=== PATIENT | female | born 1950 | race Caucasian/White ===

== ENCOUNTER 2016-10-08 11:07 | Observation (INO) | payer BC ==
[~2016-10-08] VITALS: Ht 157.5 cm; Wt 58.7 kg
[~2016-10-08 11:07] MED LIST: ACET-1487 PO; Allergy Shots INJ; CHOL100027 PO; COEN100C15 PO; Cranberry PO; EFFSR375 PO; ENAL10TA88 PO; ESTR0.034 TD; MULT-513 PO; Probiotic PO; RANI300T PO
[2016-10-08] MEDS ORDERED: RABE20TA5 PO (11:37)
[2016-10-08] MEDS ORDERED: HYDR25SU20 PR (11:37)
[2016-10-08] MEDS ORDERED: LSN20 PO (11:37)
[2016-10-08] MEDS ORDERED: LORA-741 PO (11:37)
[2016-10-08] MEDS ORDERED: PREMARIN (11:37)
[2016-10-08] MEDS ORDERED: VENL75CA PO (11:37)
[2016-10-08] MEDS ORDERED: CONJ1TAB (11:37)
[2016-10-08] MEDS ORDERED: HYOS1TAB PO (11:38)
[2016-10-08 12:54] LABS: BASO % 0.6 %; BASO ABS # 0.04 K/uL (0-0.2); COMPLETE YES; HEMATOCRIT 40.6 % (37-47); IG% 0.2 %; LYMPH % 30.5 %; LYMPH ABS # 1.97 K/uL (1.2-3.4); MEAN CELL VOLUME 92.5 fL (80-100); MEAN CORPUSCULAR HEMOGLOBIN 32.6 pg (25-34); MEAN CORPUSCULAR HGB CONC 35.2 g/dl (32-36); MEAN PLATELET VOLUME 10.7 fL (7.4-10.4); MONO % 5.9 %; NEUT % 62.8 %; PLATELET COUNT 320 K/uL (130-400); RED BLOOD COUNT 4.39 M/uL (4.2-5.4); WHITE BLOOD COUNT 6.45 K/uL (4.8-10.8)
[2016-10-08] MEDS ORDERED: OPTIRAY 320 IV PRN (13:00)
[2016-10-08 13:01] LABS: BUN/CREATININE RATIO 19.3 (10-20); CALCIUM 9.1 mg/dl (8.5-10.1); CREATININE 0.8 mg/dl (0.60-1.20); INR 0.9 (0.9-1.1); POTASSIUM 3.9 mmol/L (3.5-5.1); PROTHROMBIN TIME (PATIENT) 10.1 SECONDS (9.0-12.0)
[2016-10-08 13:08] LABS: ISTAT CREATININE 0.7 mg/dl (0.6-1.3); ISTAT HEMOGLOBIN 13.3 g/dl (12.0-16.0); ISTAT IONIZED CALCIUM 1.16 mmol/l (1.12-1.32)
--- NOTE | 2016-10-08 13:51 | DIAGNOSTIC IMAGING REPORT ---
CT ANGIOGRAPHY THE CHEST WITHOUT AND WITH CONTRAST CLINICAL HISTORY: Chest pain shortness of breath. Suspected aortic dissection. COMPARISON STUDY: No previous studies for comparison. FINDINGS: Unenhanced images were obtained through the chest. The patient was then scanned in a dynamic helical fashion during intravenous administration 92 cc of Optiray 320. MIP imaging was performed. Unenhanced images reveal no evidence of acute aortic hematoma. There are mild coronary artery calcifications present. Postcontrast images reveal no evidence of thoracic aortic aneurysm or dissection. There are no pulmonary artery filling defects to indicate acute pulmonary embolism. There is no pneumothorax. There is no focal pulmonary consolidation. There are no pleural effusions. There are no pathologically enlarged axillary, mediastinal, or hilar lymph nodes. IMPRESSION: 1. No CT evidence of aortic aneurysm or dissection. 2. No CT evidence of acute pulmonary embolism 3. No evidence of focal pulmonary consolidation. No evidence of pathologic adenopathy. Electronically signed by: Scott Isaacs M.D. 10/08/2016 1:25 PM Dictated Date/Time: 10/08/2016 1:22 PM
--- NOTE | 2016-10-08 15:15 | Medical Student: [facility] ---
Med Student History & Physical Date & Time of Service: Oct 08, 2016 at 14:59 Chief Complaint: Chest Pain Primary Care Physician: Jose Gibson M.D. History of Present Illness Source: patient 66y/o female was cleaning her car this morning when she developed stabbing chest pain in the middle of her chest around 11am. She states that the pain radiated directly to her back and lasted about 10 minutes before it subsided. The patient states that she may have also had some jaw pain, but denies neck pain, shoulder pain, or arm pain. The patient was then pain free for a short period before she had another 15 minute episode of the stabbing pain with radiation to the back. During both of these episodes, the patient states that she felt generalized weakness. Since the second episode of pain, the patient denies any further pain or symptoms. She states that she is at her baseline. She denies sweating, nausea, fever, chills, SOB, leg swelling, diarrhea, constipation, blood in stool, MESA, dizziness, lightheadedness. The patient had a cardiac ablation for a fast heart beat 12 years ago. She developed a blood clot in her leg following the procedure and was put on blood thinners for six months. She never developed a PE and has not had any recent issues with palpitations. The patient also has a history of acid reflux, but states that her pain today felt very different than the burning pain she usually gets with acid reflux. The patient was treated for a sinus infection with two rounds of antibiotics recently. Her last treatment was three days ago and states that she has not had any congestion, sinus pain, or cough over the past three days. Past Medical/Surgical History 1. HTN 2. Acid reflux 3. Anxiety 4. Allergies 5. IBS Surgical History 1. Cardiac ablation 2. hysterectomy Family History Father: coronary artery disease Sibling(s): coronary artery disease, pertinent history of (sister Aortic aneurysm) Social History Smoking Status: Never Smoker Alcohol Use: occasionally Marital Status: Housing status: lives with family Allergies Coded Allergies: Penicillins (Unverified Allergy, Unknown, anaphylaxis, 10/08/16) Medications Conjugated Estrogens-Medroxypr (Premphase) Hydrocortisone Acetate (Rectal (Anusol-Hc), 25 MG [place] BID Hyoscyamine Sulfate (Levsin), 0.125 MG PO UD Lisinopril (Lisinopril), 20 MG PO DAILY Lorazepam (Ativan), 0.5 MG PO UD Rabeprazole Sodium (Aciphex), 20 MG PO DAILY Venlafaxine Hcl (Effexor Xr), 1 CAP PO DAILY [premarin patch] Review of Systems Constitutional: No chills, No fever, No sweats Eyes: No discharge, No redness, No worsening of vision ENT: No hearing loss, No nasal symptoms, No sore throat, No trouble swallowing Respiratory: No cough, No dyspnea at rest, No dyspnea on exertion, No shortness of breath, No sputum, No wheezing Cardiovascular: No edema, No palpitations Abdomen: No constipation, No diarrhea, No nausea, No pain, No vomiting Musculoskeletal: No joint pain, No muscle pain, No swelling Neurologic: No memory loss, No numbness/tingling, No paralysis, No vertigo Psychiatric: No depression symptoms, No substance abuse Hematologic / Lymphatic: No abnormal bleeding/bruising, No swollen lymph nodes Integumentary: No itch, No new/changing skin lesions, No rash Physical Exam Vital Signs (24 Hours) Date Time Temp Pulse Resp B/P Pulse Ox O2 Delivery O2 Flow Rate FiO2 10/08/16 13:51 68 18 140/75 100 Room Air 10/08/16 11:30 98 Room Air 10/08/16 11:29 73 10/08/16 11:21 98 Room Air 10/08/16 11:15 36.5 74 20 137/83 95 Room Air General Appearance: WD/WN, no apparent distress Head: normocephalic, atraumatic Eyes: normal inspection, EOMI ENT: normal ENT inspection, hearing grossly normal, pharynx normal Neck: supple, no adenopathy, no carotid bruits, trachea midline Respiratory/Chest: chest non-tender, no respiratory distress, no accessory muscle use, + crackles (right base) Cardiovascular: regular rate, rhythm, no edema, no gallop, no murmur, normal peripheral pulses Abdomen/GI: normal bowel sounds, non tender, soft Back: normal inspection Extremities/Musculoskelatal: normal inspection, no calf tenderness, no pedal edema Neurologic/Psych: alert, normal mood/affect, oriented x 3 Skin: normal color, warm/dry, no rash Lymphatic: no adenopathy Diagnostics Laboratory Results Results Past 24 Hours Test 10/08/16 11:30 2/21/17 12:58 10/08/16 13:08 Range/Units White Blood Count 6.45 4.8-10.8 K/uL Red Blood Count 4.39 4.2-5.4 M/uL Hemoglobin 14.3 12.0-16.0 g/dL Hematocrit 40.6 37-47 % Mean Corpuscular Volume 92.5 80-100 fL Mean Corpuscular Hemoglobin 32.6 25-34 pg Mean Corpuscular Hemoglobin Concent 35.2 32-36 g/dl Platelet Count 320 130-400 K/uL Mean Platelet Volume 10.7 7.4-10.4 fL Neutrophils (%) (Auto) 62.8 % Lymphocytes (%) (Auto) 30.5 % Monocytes (%) (Auto) 5.9 % Eosinophils (%) (Auto) 0.0 % Basophils (%) (Auto) 0.6 % Neutrophils # (Auto) 4.05 1.4-6.5 K/uL Lymphocytes # (Auto) 1.97 1.2-3.4 K/uL Monocytes # (Auto) 0.38 0.11-0.59 K/uL Eosinophils # (Auto) 0.00 0-0.5 K/uL Basophils # (Auto) 0.04 0-0.2 K/uL RDW Standard Deviation 43.0 36.4-46.3 fL RDW Coefficient of Variation 12.7 11.5-14.5 % Immature Granulocyte % (Auto) 0.2 % Immature Granulocyte # (Auto) 0.01 0.00-0.02 K/uL Prothrombin Time 10.1 9.0-12.0 SECONDS Prothromb Time International Ratio 0.9 0.9-1.1 Activated Partial Thromboplast Time 25.4 21.0-31.0 SECONDS Partial Thromboplastin Ratio 1.0 Sodium Level 139 136-145 mmol/L Potassium Level 3.9 3.5-5.1 mmol/L Chloride Level 103 98-107 mmol/L Carbon Dioxide Level 30 21-32 mmol/L Anion Gap 6.0 14.0 16-25 mmol/L Blood Urea Nitrogen 15 7-18 mg/dl Creatinine 0.80 0.60-1.20 mg/dl Est Creatinine Clear Calc Drug Dose 55.5 ml/min Estimated GFR () 89.7 Estimated GFR (Non- 77.4 BUN/Creatinine Ratio 19.3 10-20 Random Glucose 73 70-99 mg/dl Calcium Level 9.1 8.5-10.1 mg/dl Bedside Hemoglobin 13.3 12.0-16.0 g/dl Bedside Hematocrit 39 37-47 % Bedside Sodium 139 135-144 mEq/L Bedside Potassium 4.7 3.3-5.0 mEq/L Bedside Chloride 99 101-112 mEq/L Bedside Total CO2 31 24-31 mEq/l Bedside Blood Urea Nitrogen 21 7-18 mg/dl Bedside Creatinine 0.7 0.6-1.3 mg/dl Bedside Glucose (other) 80 70-99 mg/dl Bedside Ionized Calcium (Suhas) 1.16 1.12-1.32 mmol/l Bedside D-Dimer 356 0-450 ng/mlFEU Bedside Troponin I 0.000 0-0.045 ng/ml Diagnostic Radiology CT ANGIOGRAPHY THE CHEST WITHOUT AND WITH CONTRAST IMPRESSION: 1. No CT evidence of aortic aneurysm or dissection. 2. No CT evidence of acute pulmonary embolism 3. No evidence of focal pulmonary consolidation. No evidence of pathologic adenopathy. Normal EKG Impression Assessment and Plan 66y/o female with two episodes of stabbing chest pain, now currently at baseline with no pain. CTA of the chest was negative for dissection, aneurysm, and PE. Initial cardiac enzymes were negative and ecg was normal. The patient has no previous history of CAD or HI, but has risk factors of HTN and family history. The patient's HEART score was calculated to be 4 (age +2, risk factors +1, and moderately suspicious +1) and will admit the patient for chest pain rule out. Chest pain rule out- Follow serial cardiac enzymes. Echo ordered. Repeat ecg. Administer ASA 81mg PO daily and NTG 0.4 SL as needed for chest pain. HTN- Continue to administer Lisinopril 20mg PO daily. Anxiety- Administer Venlafaxine 75mg PO daily and Lorazepam 0.5mg PO as needed for anxiety. Acid reflux- Administer Rabeprazole 20mg PO daily. IBS- Administer Hyoscyamine 0.125mg PO daily. Level of Care Med/Surg
--- NOTE | 2016-10-08 16:09 | History and Physical ---
History & Physical Date & Time of Service: Oct 08, 2016 at 15:49 Chief Complaint: Chest Pain,Sob Primary Care Physician: Jose Gibson M.D. History of Present Illness Source: patient, family 66F with a PMHx of HTN, GERD, IBS, cardiac ablation 12 years ago w post op blood clot presents with an acute onset sharp midline chest pain that started when she was wiping her car during a car wash. Patient went inside, the pain subsided after 10 minutes, then returned while she was at rest. Patient states that her jaw also felt tight at this time. Her cardiac history is significant for cardiac ablation for tachycardia approx 12 years ago with no complications, it was done at [facility] [place]. She has had no cardiac complaints since then. Pt also reports that the pain radiated to her back and felt like it was stabbing through her back. Her sister from an aortic aneurysm in her 70s. ROS: She denies sweating, nausea, fever, chills, SOB, leg swelling, diarrhea, constipation, blood in stool, MESA, dizziness, lightheadedness. PMHx: GERD on PPI - had an upper endoscopy 1 month ago that found esophageal polyps, otherwise laquita. Finished a course of doxy on Friday for a URI, cardiac ablation 12 years ago, done here (front window cashier said they will merge the MRNs). No pancreatic problems, chronically elevated LFTs of unknown origin per PCP (Dr. Gibson). PSHx: Hysterectomy >20 years ago. Allergies: Penicillins. SHx: Non smoker, lives w Past Medical/Surgical History Medical Problems: (1) Acid reflux Status: Chronic (2) H/O blood clots Status: Resolved (3) HTN (hypertension) Status: Chronic Surgical Problems: (1) H/O prior ablation treatment Status: Resolved Family History Aortic aneurysm Heart disease Social History Smoking Status: Never Smoker Alcohol Use: occasionally (once a week) Marital Status: Housing status: lives with family Allergies Coded Allergies: Penicillins (Unverified Allergy, Unknown, anaphylaxis, 10/08/16) Home Medications Scheduled Hydrocortisone Acetate (Rectal (Anusol-Hc), 25 MG [place] BID Hyoscyamine Sulfate (Levsin), 0.125 MG PO UD Lisinopril (Lisinopril), 20 MG PO DAILY Lorazepam (Ativan), 0.5 MG PO UD Rabeprazole Sodium (Aciphex), 20 MG PO DAILY Venlafaxine Hcl (Effexor Xr), 1 CAP PO DAILY Miscellaneous Medications Conjugated Estrogens-Medroxypr (Premphase) [premarin patch] Review of Systems Constitutional: No chills, No fever Cardiovascular: + chest pain Abdomen: No constipation, No diarrhea, No nausea, No pain, No vomiting Neurologic: No memory loss Physical Exam Vital Signs Date Time Temp Pulse Resp B/P Pulse Ox O2 Delivery O2 Flow Rate FiO2 10/08/16 15:44 68 10/08/16 13:51 68 18 140/75 100 Room Air 10/08/16 11:30 98 Room Air 10/08/16 11:29 73 10/08/16 11:21 98 Room Air 10/08/16 11:15 36.5 74 20 137/83 95 Room Air General Appearance: WD/WN, no apparent distress Respiratory/Chest: chest non-tender, lungs clear, normal breath sounds, no respiratory distress, no accessory muscle use Cardiovascular: regular rate, rhythm, no edema, no gallop, no JVD, no murmur, normal peripheral pulses Abdomen/GI: normal bowel sounds, non tender, soft, no organomegaly, no pulsatile mass Extremities/Musculoskelatal: normal inspection, no calf tenderness, no pedal edema Neurologic/Psych: alert, normal mood/affect, normal reflexes, oriented x 3 Diagnostics Laboratory Results Results Past 24 Hours Test 10/08/16 11:30 10/08/16 12:58 10/08/16 13:08 Range/Units White Blood Count 6.45 4.8-10.8 K/uL Red Blood Count 4.39 4.2-5.4 M/uL Hemoglobin 14.3 12.0-16.0 g/dL Hematocrit 40.6 37-47 % Mean Corpuscular Volume 92.5 80-100 fL Mean Corpuscular Hemoglobin 32.6 25-34 pg Mean Corpuscular Hemoglobin Concent 35.2 32-36 g/dl Platelet Count 320 130-400 K/uL Mean Platelet Volume 10.7 7.4-10.4 fL Neutrophils (%) (Auto) 62.8 % Lymphocytes (%) (Auto) 30.5 % Monocytes (%) (Auto) 5.9 % Eosinophils (%) (Auto) 0.0 % Basophils (%) (Auto) 0.6 % Neutrophils # (Auto) 4.05 1.4-6.5 K/uL Lymphocytes # (Auto) 1.97 1.2-3.4 K/uL Monocytes # (Auto) 0.38 0.11-0.59 K/uL Eosinophils # (Auto) 0.00 0-0.5 K/uL Basophils # (Auto) 0.04 0-0.2 K/uL RDW Standard Deviation 43.0 36.4-46.3 fL RDW Coefficient of Variation 12.7 11.5-14.5 % Immature Granulocyte % (Auto) 0.2 % Immature Granulocyte # (Auto) 0.01 0.00-0.02 K/uL Prothrombin Time 10.1 9.0-12.0 SECONDS Prothromb Time International Ratio 0.9 0.9-1.1 Activated Partial Thromboplast Time 25.4 21.0-31.0 SECONDS Partial Thromboplastin Ratio 1.0 Sodium Level 139 136-145 mmol/L Potassium Level 3.9 3.5-5.1 mmol/L Chloride Level 103 98-107 mmol/L Carbon Dioxide Level 30 21-32 mmol/L Anion Gap 6.0 14.0 16-25 mmol/L Blood Urea Nitrogen 15 7-18 mg/dl Creatinine 0.80 0.60-1.20 mg/dl Est Creatinine Clear Calc Drug Dose 55.5 ml/min Estimated GFR () 89.7 Estimated GFR (Non- 77.4 BUN/Creatinine Ratio 19.3 10-20 Random Glucose 73 70-99 mg/dl Calcium Level 9.1 8.5-10.1 mg/dl Bedside Hemoglobin 13.3 12.0-16.0 g/dl Bedside Hematocrit 39 37-47 % Bedside Sodium 139 135-144 mEq/L Bedside Potassium 4.7 3.3-5.0 mEq/L Bedside Chloride 99 101-112 mEq/L Bedside Total CO2 31 24-31 mEq/l Bedside Blood Urea Nitrogen 21 7-18 mg/dl Bedside Creatinine 0.7 0.6-1.3 mg/dl Bedside Glucose (other) 80 70-99 mg/dl Bedside Ionized Calcium (Suhas) 1.16 1.12-1.32 mmol/l Bedside D-Dimer 356 0-450 ng/mlFEU Bedside Troponin I 0.000 0-0.045 ng/ml Diagnostic Radiology CT ANGIOGRAPHY THE CHEST WITHOUT AND WITH CONTRAST CLINICAL HISTORY: Chest pain shortness of breath. Suspected aortic dissection. COMPARISON STUDY: No previous studies for comparison. FINDINGS: Unenhanced images were obtained through the chest. The patient was then scanned in a dynamic helical fashion during intravenous administration 92 cc of Optiray 320. MIP imaging was performed. Unenhanced images reveal no evidence of acute aortic hematoma. There are mild coronary artery calcifications present. Postcontrast images reveal no evidence of thoracic aortic aneurysm or dissection. There are no pulmonary artery filling defects to indicate acute pulmonary embolism. There is no pneumothorax. There is no focal pulmonary consolidation. There are no pleural effusions. There are no pathologically enlarged axillary, mediastinal, or hilar lymph nodes. IMPRESSION: 1. No CT evidence of aortic aneurysm or dissection. 2. No CT evidence of acute pulmonary embolism 3. No evidence of focal pulmonary consolidation. No evidence of pathologic adenopathy. EKG Normal sinus rhythm Normal ECG No previous ECGs available Normal EKG Impression Assessment and Plan 66F w a PMHx of GERD, Cardiac ablation and HTN presents with acute onset sharp chest pain that radiated to her back. Fam Hx significant for older sister who from aortic aneurysm in her 70s. Patient completed a course of Doxycycline on Friday. CTA showed no evidence of aortic or thoracic aneurysm. Pt admitted to tele for observation. Will order repeat troponins and stress echo. Chest Pain Radiating to back, Ischemic vs Costochondritis vs Post Viral - Pt has not acute complaints of chest pain at this time. - EKG grossly normal. Trops neg. CTA negative for dissection. - F/u exercise echo, repeat troponins, f/u lipase, amylase, LFTs GERD - c/w Pantoprazole 40mg daily. HTN - c/w Lisinopril 20mg daily. Mood c/w Venlaxafine 75mg daily. IBS c/w Hyoscyamine 0.125mg DVT Proph: Lovenox 30units SQ. Dispo: Heart healthy diet, Observation, Tele, Full Code. Resident Physician Supervision Note: I interviewed and examined the patient. Discussed with Dr. Hinojosa and agree with findings and plan as documented in the note. Any exceptions or clarifications are listed here: None Documented By: Mariusz Lawrence chest pain - sharp and stabbing - substernal - ~10mins then gone then again for ~15mins then gone - intense radiated to back. feels fine now. breathing not affected by pain vitals noted, nad breathing unlabored no pallor or icterus, exam otherwise as above EKG no acute ischemic changes, CT no dissection, labs noted chest pain - more than likely transient esophageal spasm - but given concerns must r/o ACS - serial enzymes, then if negative, stress echo otherwise as above Resident Involvement: Resident Care Provided Care Provided: Adult [facility] Medicine
[2016-10-08] MEDS ORDERED: POLYETHYLENE (MIRALAX) 17 GM PACK PO PRN (16:15)
[2016-10-08] MEDS ORDERED: ONDANSETRON INJ 2 MG/ML 2 ML VIAL IV PRN (16:15)
[2016-10-08] MEDS ORDERED: MAGNESIUM HYDROXIDE SUSP 30 ML UDC PO PRN (16:15)
[2016-10-08] MEDS ORDERED: MoRPHine SULFATE 2 MG/ML CARP IV PRN (16:15)
[2016-10-08] MEDS ORDERED: ALUMINUM/MAGNESIUM/SIMETH (MAALOX MAX) 30 ML UDC PO PRN (16:15)
[2016-10-08] MEDS ORDERED: ACETAMINOPHEN 325 MG TAB PO PRN (16:15)
[2016-10-08] MEDS ORDERED: IV FLUIDS COMPLETED PRN (16:30)
[2016-10-08 17:16] LABS: BUN/CREATININE RATIO 18.6 (10-20); CALCIUM 8.8 mg/dl (8.5-10.1); CREATININE 0.74 mg/dl (0.60-1.20); POTASSIUM 4.4 mmol/L (3.5-5.1)
[2016-10-08 17:41] VITALS: BP 143/85; PULSE 69; TEMP 36.5; O2SAT 100
[2016-10-08 18:00] VITALS: BP 143/85; PULSE 69; TEMP 36.5; O2SAT 98; Ht 157.5 cm; Wt 58.7 kg
--- NOTE | 2016-10-08 19:12 | EMERGENCY ROOM VISIT NOTE ---
History Report prepared by Kimberly: Keesha Vasquez Under the Supervision of: Dr. Hamilton Villeda M.D. First contact with patient: 12:33 Chief Complaint: CHEST PAIN Stated Complaint: CHEST PAIN,SOB Nursing Triage Summary: Patient states went to dentist this AM and took 0.5 mg Ativan beforehand. Patient has hx of anxiety. Patient states was out in the yard and had stabbing, substernal chest pain that radiated to back. Patient states pain lasted 15-20 minutes. Patient states pain went away on its own, without intervention. Patient denies SOB, diaphoresis, N/V. History of Present Illness The patient is a 66 year old female who presents to the Emergency Room with complaints of an episode of central chest pain around 11AM today. She describes it as an "awful pain" that lasted about 15 minutes. Her states that she was doubled over in pain. She also felt the pain in her back. Her jaw was slightly tight at that time. She had a cough last week which has resolved. Denies lightheadedness, sweating, shortness of breath, nausea, leg swelling, leg pain or other complaints. Past medical history includes acid reflux and diabetes. Her current symptoms do not feel similar to acid reflux. She states that she has never had similar pain. She has not noticed any chest pain prior to today for the past several days. 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 She was put on blood thinners after the surgery due to a blood clot in her lungs. Her current symptoms do not feel similar to her previous blood clot. The patient has never been a smoker. There is a family history of heart disease - her father was diagnosed with CAD in his 60s. Her sister was a heavy smoker and was diagnosed with CAD in her 60s. Her sister also had a carotid artery blockage and aortic aneurysm. Source of History: patient Onset: 11AM today Position: chest (central) Timing: resolved Associated Symptoms: No SOB, No nausea Note: Denies lightheadedness, sweating, leg swelling, leg pain Review of Systems See HPI for pertinent positives & negatives. A total of 10 systems reviewed and were otherwise negative. Past Medical & Surgical Medical Problems: (1) Acid reflux (2) Chest pain (3) H/O blood clots (4) HTN (hypertension) Surgical Problems: (1) H/O prior ablation treatment Family History Aortic aneurysm Heart disease Social History Smoking Status: Never Smoker Marital Status: Housing Status: lives with significant other Current/Historical Medications Scheduled Hydrocortisone Acetate (Rectal (Anusol-Hc), 25 MG DE BID Hyoscyamine Sulfate (Levsin), 0.125 MG PO UD Lisinopril (Lisinopril), 20 MG PO DAILY Lorazepam (Ativan), 0.5 MG PO UD Rabeprazole Sodium (Aciphex), 20 MG PO DAILY Venlafaxine Hcl (Effexor Xr), 1 CAP PO DAILY Miscellaneous Medications Conjugated Estrogens-Medroxypr (Premphase) [premarin patch] Allergies Coded Allergies: Penicillins (Unverified Allergy, Unknown, anaphylaxis, 10/08/16) Physical Exam Vital Signs Date Time Temp Pulse Resp B/P Pulse Ox O2 Delivery O2 Flow Rate FiO2 10/08/16 15:50 65 10 154/73 100 Room Air 10/08/16 15:44 68 10/08/16 13:51 68 18 140/75 100 Room Air 10/08/16 11:30 98 Room Air 10/08/16 11:29 73 10/08/16 11:21 98 Room Air 10/08/16 11:15 36.5 74 20 137/83 95 Room Air Physical Exam Constitutional: Vital signs reviewed. Eyes: Pupils are equal round reactive to light. Conjunctiva are noninjected. ENT: Pharynx is clear without erythema or exudate. Mucous membranes are moist. Neck supple without meningeal signs. Respiratory: Clear to auscultation bilaterally. Breath sounds are equal bilaterally. Cardiovascular: Regular rate and rhythm. No rubs or gallops. Left arm blood pressure: 113/73. Right arm blood pressure: 131/79. GI: Soft, nondistended and nontender. Bowel sounds are present. Musculoskeletal: No peripheral edema. No lower extremity tenderness. Integumentary: No cyanosis. Neurological: The patient is awake and alert. No focal deficits. Psychiatric: Normal affect. Medical Decision & Procedures ER Provider Diagnostic Interpretation: Radiology results as stated below per my review and the radiologist's interpretation: CT ANGIOGRAPHY THE CHEST WITHOUT AND WITH CONTRAST CLINICAL HISTORY: Chest pain shortness of breath. Suspected aortic dissection. COMPARISON STUDY: No previous studies for comparison. FINDINGS: Unenhanced images were obtained through the chest. The patient was then scanned in a dynamic helical fashion during intravenous administration 92 cc of Optiray 320. MIP imaging was performed. Unenhanced images reveal no evidence of acute aortic hematoma. There are mild coronary artery calcifications present. Postcontrast images reveal no evidence of thoracic aortic aneurysm or dissection. There are no pulmonary artery filling defects to indicate acute pulmonary embolism. There is no pneumothorax. There is no focal pulmonary consolidation. There are no pleural effusions. There are no pathologically enlarged axillary, mediastinal, or hilar lymph nodes. IMPRESSION: 1. No CT evidence of aortic aneurysm or dissection. 2. No CT evidence of acute pulmonary embolism 3. No evidence of focal pulmonary consolidation. No evidence of pathologic adenopathy. Electronically signed by: Scott Isaacs M.D. 10/08/2016 1:25 PM Dictated Date/Time: 10/08/2016 1:22 PM Laboratory Results 10/08/16 11:30 Red Blood Count 4.39, Mean Corpuscular Volume 92.5, Mean Corpuscular Hemoglobin 32.6, Mean Corpuscular Hemoglobin Concent 35.2, Mean Platelet Volume 10.7, Neutrophils (%) (Auto) 62.8, Lymphocytes (%) (Auto) 30.5, Monocytes (%) (Auto) 5.9, Eosinophils (%) (Auto) 0.0, Basophils (%) (Auto) 0.6, Neutrophils # (Auto) 4.05, Lymphocytes # (Auto) 1.97, Monocytes # (Auto) 0.38, Eosinophils # (Auto) 0.00, Basophils # (Auto) 0.04 Test 10/08/16 11:30 10/08/16 12:58 10/08/16 13:08 White Blood Count 6.45 K/uL (4.8-10.8) Red Blood Count 4.39 M/uL (4.2-5.4) Hemoglobin 14.3 g/dL (12.0-16.0) Hematocrit 40.6 % (37-47) Mean Corpuscular Volume 92.5 fL (80-100) Mean Corpuscular Hemoglobin 32.6 pg (25-34) Mean Corpuscular Hemoglobin Concent 35.2 g/dl (32-36) Platelet Count 320 K/uL (130-400) Mean Platelet Volume 10.7 fL (7.4-10.4) Neutrophils (%) (Auto) 62.8 % Lymphocytes (%) (Auto) 30.5 % Monocytes (%) (Auto) 5.9 % Eosinophils (%) (Auto) 0.0 % Basophils (%) (Auto) 0.6 % Neutrophils # (Auto) 4.05 K/uL (1.4-6.5) Lymphocytes # (Auto) 1.97 K/uL (1.2-3.4) Monocytes # (Auto) 0.38 K/uL (0.11-0.59) Eosinophils # (Auto) 0.00 K/uL (0-0.5) Basophils # (Auto) 0.04 K/uL (0-0.2) RDW Standard Deviation 43.0 fL (36.4-46.3) RDW Coefficient of Variation 12.7 % (11.5-14.5) Immature Granulocyte % (Auto) 0.2 % Immature Granulocyte # (Auto) 0.01 K/uL (0.00-0.02) Prothrombin Time 10.1 SECONDS (9.0-12.0) Prothromb Time International Ratio 0.9 (0.9-1.1) Activated Partial Thromboplast Time 25.4 SECONDS (21.0-31.0) Partial Thromboplastin Ratio 1.0 Bedside Hemoglobin 13.3 g/dl (12.0-16.0) Bedside Hematocrit 39 % (37-47) Bedside Sodium 139 mEq/L (135-144) Bedside Potassium 4.7 mEq/L (3.3-5.0) Bedside Chloride 99 mEq/L (101-112) Bedside Total CO2 31 mEq/l (24-31) Bedside Blood Urea Nitrogen 21 mg/dl (7-18) Bedside Creatinine 0.7 mg/dl (0.6-1.3) Bedside Glucose (other) 80 mg/dl (70-99) Bedside Ionized Calcium (Suhas) 1.16 mmol/l (1.12-1.32) Bedside D-Dimer 356 ng/mlFEU (0-450) Bedside Troponin I 0.000 ng/ml (0-0.045) Laboratory results as reviewed by me. ECG Indication: chest pain Rate (beats per minute): 73 Rhythm: normal sinus Findings: no acute ischemic change, no ectopy ED Course 1235: The patient was evaluated in room A3. A complete history and physical exam was performed. 1354: I reassessed the patient. She had no chest pain at this time. I discussed test results with her and recommended hospitalization pending CT results. She agreed with the plan. 1401: I discussed the case with Dr. Melinda THOMAS Hospitalist. The patient will be evaluated for further management. 1416: I updated the patient on her CT results. Medical Decision This is a 66-year-old female who presents with chest pain rating to her back and neck. Differential diagnosis includes pulmonary embolism, aortic aneurysm, aortic dissection, unstable angina, DE, pleurisy. I did perform a limited focused review of portions of the patient's old chart on the electronic medical record. The patient has had no previous visits to this hospital. I did evaluate the patient as noted above. The patient is presenting with an episode of chest pain which has since resolved. She stated that it was a severe pain that doubled her over. She has never had anything like this before. She does have a family history of CAD and aortic aneurysm. She also has a personal history of pulmonary embolism. IV access was established. The patient was placed on a continuous sheet metal helper. I did order and personally review the patient's 12-lead EKG as described above. I did order and review the patient's blood work as noted in the electronic medical record. I did order a stat CT of the chest. I did review the images myself as well as the radiology report as described above. There is no evidence of pulmonary embolism or aortic aneurysm or dissection. I did discuss the test results with the patient. I did recommend hospitalization for further evaluation of her symptoms. I did discuss case with the hospitalist and mental health case manager. Consults Time Called: [phone] Consulting Physician: Dr. Melinda THOMAS Hospitalist Returned Call: [phone] I discussed the case with him. The patient will be evaluated for further management. Impression Primary Impression: Acute chest pain Scribe Attestation The scribe's documentation has been prepared under my direct and personally reviewed by me in its entirety. I confirm that the note above accurately reflects all work, treatment, procedures, and medical decision making performed by me. Departure Information Dispostion Being Evaluated By Hospitalist Referrals Jose Gibson M.D. (PCP) Patient Instructions My [facility]
[2016-10-08 19:24] VITALS: BP 135/78; PULSE 72; TEMP 36.7; O2SAT 100
[2016-10-08] MEDS ORDERED: ENOXAPARIN 30 MG/0.3 ML SYR SC SCH (20:00)
[2016-10-08] MEDS ORDERED: NURSING VERBAL MED ORDER ONE (20:30)
[2016-10-08] MEDS ORDERED: VENLAFAXINE HCL XR 75 MG CAPXR PO SCH (21:00)
[2016-10-08] MEDS ORDERED: LISINOPRIL 20 MG TAB PO SCH (21:00)
[2016-10-08] MEDS ORDERED: ASPIRIN 81 MG ECTAB PO STA (22:13)
[2016-10-08 23:06] LABS: CKMB/CK RATIO 2.1 (0-3.0)
[2016-10-08 23:49] VITALS: BP 97/59; PULSE 86; TEMP 36.5; O2SAT 97
[2016-10-09 03:51] VITALS: BP 104/60; PULSE 72; TEMP 36.6; O2SAT 96
[2016-10-09 07:59] LABS: CKMB/CK RATIO 1.8 (0-3.0)
[2016-10-09 08:17] VITALS: BP 98/60; PULSE 78; TEMP 36.6; O2SAT 98
[2016-10-09] MEDS ORDERED: VENLAFAXINE HCL XR 75 MG CAPXR PO SCH (09:00)
[2016-10-09] MEDS ORDERED: PANTOprazole SOD 40 MG TAB PO SCH (09:00)
[2016-10-09] MEDS ORDERED: LISINOPRIL 20 MG TAB PO SCH (09:00)
[2016-10-09] MEDS ORDERED: ASPIRIN 81 MG ECTAB PO SCH (09:00)
--- NOTE | 2016-10-09 10:00 | Discharge Instructions ---
Discharge Instructions Admission Reason for Admission: Chest Pain Discharge Discharge Diagnosis / Problem: Chest pain, atypical Discharge Goals Goal(s): Decrease discomfort, Diagnostic testing (outpatient stress test) Activity Recommendations Activity Limitations: resume your previous activity Lifting Limitations: none Exercise/Sports Limitations: as tolerated May Resume Sexual Activity: when tolerated Shower/Bathe: no limitations Driving or Machine Use: no limitations . Instructions / Follow-Up Instructions / Follow-Up Medications: resume all prior home medications In summary, you were worked up for acute heart attack, pneumonia, pulmonary embolism and aortic dissection, all testing came back negative. You are currently chest pain free. You can be discharged home and follow up with outpatient stress test. FOLLOW UP - call office of Dr. Gibson for a referral for an outpatient exercise stress test with cardiology Current Hospital Diet Patient's current hospital diet: AHA Diet (Heart Healthy) Discharge Diet Recommended Diet: AHA Diet (Heart Healthy) Pending Studies Studies pending at discharge: no Laboratory Results Cardiac enzymes - negative x [address] chest - no evidence of aortic dissection, pulmonary embolism, infiltrate or any other process that could explain chest pain Last Resulted CBC 10/08/16 11:30 Red Blood Count 4.39, Mean Corpuscular Volume 92.5, Mean Corpuscular Hemoglobin 32.6, Mean Corpuscular Hemoglobin Concent 35.2, Mean Platelet Volume 10.7, Neutrophils (%) (Auto) 62.8, Lymphocytes (%) (Auto) 30.5, Monocytes (%) (Auto) 5.9, Eosinophils (%) (Auto) 0.0, Basophils (%) (Auto) 0.6, Neutrophils # (Auto) 4.05, Lymphocytes # (Auto) 1.97, Monocytes # (Auto) 0.38, Eosinophils # (Auto) 0.00, Basophils # (Auto) 0.04 Last Resulted BMP 10/08/16 16:36 Medical Emergencies . Who to Call and When: Medical Emergencies: If at any time you feel your situation is an emergency, please call 911 immediately. . Non-Emergent Contact Non-Emergency issues call your: Primary Care Provider Call Non-Emergent contact if: your pain is worsening, your pain is concerning you, you have any medication questions . . "Provider Documentation" section prepared by Bry Villasenor. VTE Core Measure Inpt VTE Proph given/why not?: Enoxaparin (Lovenox)SQ [place] Drug Monitoring Program Search Results: no issues identified
[2016-10-09 10:07] VITALS: BP 98/60; PULSE 78; TEMP 36.6; O2SAT 98
--- NOTE | 2016-10-10 08:07 | Discharge Summary ---
Discharge Summary Date of Service Oct 10, 2016. Discharge Summary Admission Date: Oct 08, 2016 at 16:16 Discharge Date: Oct 09, 2016 Discharge Disposition: Home Principal Diagnosis: Chest pain, atypical Problems/Secondary Diagnoses: HTN GERD Procedures: CT angiogram chest: no PE, no aortic dissection, no infiltrate Consultations: none Medication Reconciliation Continued Medications: Conjugated Estrogens-Medroxypr (Premphase) 1 Tab Tab Hydrocortisone Acetate (Rectal (Anusol-Hc) 25 Mg Sup 25 MG [place] BID, #7 SUP Hyoscyamine Sulfate (Levsin) 0.125 Mg Tab 0.125 MG PO UD, TAB Lisinopril (Lisinopril) 20 Mg Tab 20 MG PO DAILY Lorazepam (Ativan) 0.5 Mg Tab 0.5 MG PO UD, TAB Rabeprazole Sodium (Aciphex) 20 Mg Tab 20 MG PO DAILY, TAB Venlafaxine Hcl (Effexor Xr) 75 Mg Cap 1 CAP PO DAILY for 30 Days, #30 CAP [premarin patch] () Discharge Exam Patient feeling well in the morning on 10/09. No further chest pain or jaw pain since time of admission. No palpitations, no difficulty breathing. Patient interested in going home in the AM and not staying for exercise stress test. Discussed that we had ruled out an acute GA as well as other etiologies of the pain and that she could certainly go home and have stress test as outpatient. Review of Systems: Constitutional: No chills, No fatigue, No fever, No problem reported, No sweats, No weakness, No weight loss Eyes: No diplopia, No discharge, No eye pain, No problem reported, No redness, No worsening of vision ENT: No dental problems, No hearing loss, No nasal symptoms, No problem reported, No sore throat, No tinnitus, No trouble swallowing, No unusual epistaxis Respiratory: No cough, No dyspnea at rest, No dyspnea on exertion, No hemoptysis, No problem reported, No shortness of breath, No sputum, No wheezing Cardiovascular: No PND, No chest pain, No claudication, No edema, No orthopnea, No palpitations, No problem reported Abdomen: No GI bleeding, No constipation, No diarrhea, No nausea, No pain, No problem reported, No vomiting Musculoskeletal: No calf pain, No joint pain, No muscle pain, No problem reported, No swelling Genitourinary - Female: No dysuria, No urinary frequency, No urinary incontinence, No urinary urgency Neurologic: No balance problems, No memory loss, No numbness/tingling, No paralysis, No problem reported, No vertigo, No weakness Endocrine: No excessive thirst, No excessive urination, No fatigue, No problem reported Hematologic / Lymphatic: No abnormal bleeding/bruising, No clotting problems , No night sweats, No problem reported, No swollen lymph nodes Integumentary: No bleeding, No color change, No itch, No new/changing skin lesions, No problem reported, No rash Physical Exam: General Appearance: WD/WN, no apparent distress Eyes: normal inspection, EOMI, sclerae normal ENT: normal ENT inspection, hearing grossly normal, pharynx normal Neck: supple, no adenopathy, no JVD, trachea midline Respiratory/Chest: chest non-tender, lungs clear, normal breath sounds, no respiratory distress, no accessory muscle use Cardiovascular: regular rate, rhythm, no edema, no gallop, no JVD, no murmur , normal peripheral pulses Abdomen / GI: normal bowel sounds, non tender, soft, no organomegaly Extremities: normal inspection, no calf tenderness, normal capillary refill , no pedal edema, normal range of motion Neurologic/Psychiatric: international trade specialist II-XII nml as tested, no motor/sensory deficits , alert, normal mood/affect, normal reflexes, oriented x 3 Skin: normal color, warm/dry, no rash Lymphatic: no adenopathy Hospital Course 66F w a PMHx of GERD, Cardiac ablation and HTN presents with acute onset sharp chest pain that radiated to her back. Fam Hx significant for older sister who from aortic aneurysm in her 70s. Patient completed a course of Doxycycline on Friday. CTA showed no evidence of aortic or thoracic aneurysm. Pt admitted to [facility] for observation. Will order repeat troponins and stress echo. Chest Pain Radiating to back, most likely costochondritis vs post viral - Pt has not acute complaints of chest pain at this time. - EKG normal, negative troponin x 3 - CT angiogram chest: no PE, no dissection, no pneumonia - will follow up with PCP and discuss setting up an exercise stress test as outpatient - given option of staying in hospital for stress test but wanted to go home GERD - c/w Pantoprazole 40mg daily. HTN - c/w Lisinopril 20mg daily. Mood c/w Venlaxafine 75mg daily. IBS c/w Hyoscyamine 0.125mg DVT Proph: Lovenox 30units SQ. Dispo: Heart healthy diet, Observation, Tele, Full Code. Total Time Spent: Less than 30 minutes This includes examination of the patient, discharge planning, medication reconciliation, and communication with other providers. Discharge Instructions Please refer to the electronic Patient Visit Report (Discharge Instructions) for additional information. Follow-Up Dr. Gibson, discuss stress test Additional Copies To Jose Gibson M.D.
== END 2016-10-09 10:29 | disposition home or self-care (01) ==
LOC: ENRESERVDT → ENRESERVTM → C.EDB 11:10 → C.2T 16:16 → MERGE 16:16
PROVIDERS: ADMIT Family Medicine; ATTEND Internal Medicine
DX: R07.89 Other chest pain (principal); I10 Essential (primary) hypertension; E11.9 Type 2 diabetes mellitus without complications; K21.9 Gastro-esophageal reflux disease without esophagitis; K58.9 Irritable bowel syndrome, unspecified; Z88.0 Allergy status to penicillin; Z82.49 Family history of ischemic heart disease and other diseases of the circulatory system

== ENCOUNTER → 2017-02-25 | Outpatient (CLI) | payer BC ==
[~2017-02-25] MED LIST changes: +CONJ1TAB; +HYDR25SU20 PR; +HYOS1TAB PO; +LORA-741 PO; +LSN20 PO; +PREMARIN; +RABE20TA5 PO; +VENL75CA PO
--- NOTE | 2017-02-25 15:39 | MAMMOGRAPHY REPORT ---
BILATERAL DIGITAL SCREENING MAMMOGRAM WITH CAD: 02/25/2017 CLINICAL HISTORY: Routine screening. TECHNIQUE: Bilateral CC and MLO views were obtained. Current study was also evaluated with a Compute r Aided Detection (CAD) system. COMPARISON: Comparison is made to exams dated: 02/23/2016 mammogram, 02/21/2015 mammogram, 02/14/2014 tricia mogram, 02/08/2013 mammogram, 01/31/2012 mammogram, and 01/24/2011 mammogram - [facility] er. BREAST COMPOSITION: There are scattered areas of fibroglandular density in both breasts. FINDINGS: The parenchymal pattern is similar to prior exams. There are are stable asymmetries in th e lateral and superior right breast. No developing mass, architectural distortion or cluster of susp icious microcalcifications is seen in either breast. IMPRESSION: ACR BI-RADS CATEGORY 2: BENIGN There is no mammographic evidence of malignancy. A 1 year screening mammogram is recommended. The pa tient will receive written notification of the results. Approximately 10% of breast cancers are not detected with mammography. A negative mammographic report should not delay biopsy if a clinically suggestive mass is present. Yecenia Zavala M.D. ay/:02/25/2017 15:00:38 Nurse'S Companion: Zachary ROSE(R)(M), [facility] letter sent: Normal 1/2 BI-RADS Code: ACR BI-RADS Category 2: Benign
== END | disposition home or self-care (01) ==
LOC: C.MAMM 08:30
PROVIDERS: ATTEND Obstetrics & Gynecology
DX: Z12.31 Encounter for screening mammogram for malignant neoplasm of breast (principal)

== ENCOUNTER → 2017-09-17 | Outpatient (CLI) | payer BC ==
[2017-09-17 11:01] LABS: BASO ABS # 0.06 K/uL (0-0.2); EOS % 2.8 %; EOS ABS # 0.16 K/uL (0-0.5); HEMATOCRIT 40.4 % (37-47); HEMOGLOBIN 14.1 g/dL (12.0-16.0); IG# 0.01 K/uL (0.00-0.02); LYMPH % 27.7 %; LYMPH ABS # 1.59 K/uL (1.2-3.4); MEAN CELL VOLUME 94.6 fL (80-100); MEAN CORPUSCULAR HGB CONC 34.9 g/dl (32-36); MEAN PLATELET VOLUME 10.9 fL (7.4-10.4); MONO % 6.3 %; MONO ABS # 0.36 K/uL (0.11-0.59); NEUT ABS # 3.57 K/uL (1.4-6.5); PLATELET COUNT 224 K/uL (130-400); RED CELL DISTRIBUTION WIDTH CV 13.1 % (11.5-14.5); RED CELL DISTRIBUTION WIDTH SD 45.1 fL (36.4-46.3); WHITE BLOOD COUNT 5.75 K/uL (4.8-10.8)
[2017-09-17 11:21] LABS: ALBUMIN 3.4 gm/dl (3.4-5.0); ALT/SGPT 59 U/L (12-78); AST/SGOT 27 U/L (15-37); BLOOD UREA NITROGEN 16 mg/dl (7-18); CALCIUM 8.6 mg/dl (8.5-10.1); CARBON DIOXIDE 32 mmol/L (21-32); CREATININE 0.79 mg/dl (0.60-1.20); GLUCOSE 103 mg/dl (70-99); POTASSIUM 3.6 mmol/L (3.5-5.1); SODIUM 137 mmol/L (136-145)
[2017-09-17 11:33] LABS: ALKALINE PHOSPHATASE 111 U/L (45-117); CHOLESTEROL 176 mg/dl (0-200); LDL CHOLESTEROL CALCULATED 81 mg/dl; TOTAL PROTEIN 7.1 gm/dl (6.4-8.2)
== END | disposition home or self-care (01) ==
LOC: C.LABBC 07:50
PROVIDERS: ATTEND Internal Medicine Geriatric Medicine
DX: Z00.00 Encounter for general adult medical examination without abnormal findings (principal); I10 Essential (primary) hypertension; I47.1 Supraventricular tachycardia; K58.9 Irritable bowel syndrome, unspecified; R79.89 Other specified abnormal findings of blood chemistry

== ENCOUNTER → 2017-10-10 | Outpatient (CLI) | payer BC | END | disposition home or self-care (01) | LOC: C.RDSM 18:57 | PROVIDERS: ATTEND Orthopaedic Surgery | DX: R52 Pain, unspecified (principal) ==